=== PATIENT | male | born 1950 | race Caucasian/White ===

== ENCOUNTER 2025-05-07 20:35 | Emergency (ER) | payer OTHER, MEDICAID ==
[~2025-05-07] VITALS: Ht 172.7 cm; Wt 72.0 kg
[2025-05-07 20:48] VITALS: O2SAT 99
[2025-05-07 21:39] LABS: BASOPHILS % 0.2 % (0.0-2.0); EOSINOPHILS % 1.4 % (0.0-5.0); HEMATOCRIT. 43.7 % (42.0-52.0); HEMOGLOBIN. 14.9 g/dL (14.0-18.0); LYMPHOCYTES % 13.5 % (20.0-50.0); MEAN CORPUSCULAR HEMOGLOBIN 30.9 pg (28.0-32.0); MEAN CORPUSCULAR HGB CONC 34.1 g/dL (31.0-37.0); MEAN CORPUSCULAR VOLUME 90.4 fL (80.0-94.0); MONOCYTES % 9.6 % (2.0-8.0); NEUTROPHILS % 75.3 % (40.0-76.0); RED BLOOD CELL COUNT 4.84 mill/uL (4.7-6.1); RED CELL DISTRIBUTION WIDTH 13.3 % (11.6-14.6); WHITE BLOOD COUNT 9.3 x1000/uL (4.5-11.0)
[2025-05-07 21:46] LABS: DIFFERENTIAL COMMENT 1
[2025-05-07 21:47] LABS: CHLORIDE 104 mEq/L (98-107); SODIUM 139 mEq/L (136-145)
[2025-05-07 21:48] LABS: CALCIUM 8.8 mg/dL (8.7-10.4); CARBON DIOXIDE 25 mEq/L (21-32)
[2025-05-07 21:53] LABS: CREATININE 1.2 mg/dL (0.6-1.3); GLUCOSE 238 mg/dL (70-105); TROPONIN I HIGH SENSITIVITY 8 ng/L (3.0-53); UREA NITROGEN BLOOD 20 mg/dL (9-23)
[2025-05-07 21:55] LABS: ALANINE AMINOTRANSFERASE 51 IU/L (10-49); ALBUMIN 4.1 g/dL (3.2-4.8); ASPARTATE AMINOTRANSFERASE 37 IU/L (<34); CREATINE KINASE 515 IU/L (46-171)
[2025-05-07 21:56] LABS: BILIRUBIN DIRECT 0.3 mg/dL (<=3.0); PROTEIN TOTAL 6.6 g/dL (6.0-8.3)
[2025-05-07 21:58] LABS: INR 1.1; PROTHROMBIN TIME 11.4 sec (9.6-11.0)
[2025-05-07 22:08] LABS: MEAN PLATELET VOLUME 10.3 fl (7.4-10.4)
[2025-05-07 22:10] LABS: PLATELET 72 x1000/uL (130-400)
[2025-05-07] MEDS: SODIUM CHLORIDE 0.9% (SEPSIS BOLUS) IV ONE (22:19)
[2025-05-07] MEDS: PIPERACILLIN/TAZO 3.375G/50ML 50 ML IV ONE (23:00)
[2025-05-07] MEDS: VANCOMYCIN 1G PREMIX 200 ML IV ONE (23:47)
[2025-05-08 00:30] LABS: CLARITY URINE CLEAR (CLEAR); COLOR URINE YELLOW (YELLOW); GLUCOSE URINE 3+ (NEGATIVE); KETONES URINE NEGATIVE (NEGATIVE); LEUKOCYTE ESTERASE URINE 1+ (NEGATIVE); NITRITE URINE NEGATIVE (NEGATIVE); OCCULT BLOOD URINE TRACE (NEGATIVE); PH URINE 6.5 (4.5-8.0); PROTEIN URINE 1+ (NEGATIVE); SPECIFIC GRAVITY URINE 1.012 (1.005-1.030); UROBILINOGEN URINE 0.2 E.U./dL (0.2-1.0)
[2025-05-08 00:39] LABS: *AMPHETAMINES SCREEN URINE NEGATIVE (NEGATIVE); *BARBITURATES SCREEN URINE NEGATIVE (NEGATIVE); *BENZODIAZEPINES SCREEN URINE NEGATIVE (NEGATIVE); *COCAINE SCREEN URINE NEGATIVE (NEGATIVE); CANNABINOID URINE SCREEN NEGATIVE (NEGATIVE); ECSTASY MDMA SCREEN URINE NEGATIVE (NEGATIVE); METHADONE URINE SCREEN NEGATIVE (NEGATIVE); OPIATES URINE SCREEN NEGATIVE (NEGATIVE); PHENCYCLIDINE URINE SCREEN NEGATIVE (NEGATIVE)
[2025-05-08 01:00] VITALS: BP 170/98; PULSE 90; RESP 18; TEMP 36.6; O2SAT 96
[2025-05-08 02:56] LABS: RBC URINE 0-2 /hpf (0-2)
[2025-05-08 02:57] LABS: SQUAMOUS EPITHELIAL CELL URINE NONE SEEN /lpf (RARE/1+)
[2025-05-08 02:58] LABS: BACTERIA URINE NONE SEEN; YEAST URINE 1+
== END 2025-05-08 01:45 | disposition short-term general hospital (02) ==
LOC: EDBD 20:35 → ER 20:35
DX: I95.9 Hypotension, unspecified (principal); R41.82 Altered mental status, unspecified; E11.69 Type 2 diabetes mellitus with other specified complication; I10 Essential (primary) hypertension; I67.82 Cerebral ischemia; Z55.6 Problems related to health literacy; Z79.899 Other long term (current) drug therapy
CPT/HCPCS: 80076; 80048; 80320; 82550; 82962; 83880; 83605; 85025; 85610; 86850; 86900; 86901; 87040; 84484; 36415; 84145; 71045; 70450; 93005; 96367; 96361; 96365; 96366; 99291; 80305; 81003; 87086; J2543; J3370; J7030; 99285; G0480